=== PATIENT | male | born 1990 | race Caucasian/White ===

== ENCOUNTER 2022-05-10 14:40 | Outpatient (CLI) | payer OTHER, SELFPAY ==
--- NOTE | ~2022-05-10 | XR_ITS ---
EXAM: XR abdomen/kub 1V DATE: 05/10/2022 15:00 HISTORY: LEFT URETERAL CALCULUS . COMPARISON: None available. FINDINGS: Clear lung bases. Normal bowel gas pattern. No organomegaly. Irregular, 3 x 6 mm left pelv ic calcification may reflect a left ureteral or UVJ stone. Additional rounded calcifications in the p aruna presumed to be pelvic phleboliths. Regional bones and soft tissues normal for age. IMPRESSION: Possible left distal ureteral/UVJ stone. Reviewed, dictated and finalized at location [facility].
== END 2022-05-10 14:41 | disposition home or self-care (01) ==
PROVIDERS: Visit Provider Nurse Practitioner Adult Health
DX: N20.1 Calculus of ureter (principal)
CPT/HCPCS: 74018

== ENCOUNTER 2022-05-18 00:16 | Day surgery (SDC) | payer SELFPAY ==
[2022-05-13 10:57] VITALS: BMI 22.7
--- NOTE | 2022-05-13 11:04 | PC.NURSE ---
Report to the Outpatient Waiting Room, entrance under the green pavilion located off [facility], at time 1100 on date 05/18/22. OR Time: 1300. - You and your visitor will be asked a series of questions to screen for COVID 19 for your protection. - Only one visitor is allowed at this time. - The patient visitor is requested to leave or wait in car when not with patient. - A mask is required within the hospital. Patients may have clear liquids (water, carbonated beverages, clear teas, apple juice) until 3 hours prior to surgery with a maximum of 20 ounces. - No food from midnight until time of surgery Take the following medications with a SIP of water the morning of surgery: PAIN PILL (IF NEEDED) Medications to discontinue per physician: N/A Date to take last dose: N/A Please no make-up, nail tajik, hairspray, perfume, deodorant, or body powder the day of surgery. No jewelry (including any body piercings) or valuables the day of surgery, leave them at home. Please take a shower or bath the night before, or the morning of, surgery with an antibacterial soap. Wear comfortable, loose fitting clothing. - Jewelry must be removed prior to entering the operating room. Rings and piercings that are not removed may be cut off. - The hospital will not accept responsibility for valuables. - Please leave all valuables, including medications, at home the day of surgery. If you are going home after surgery, a licensed local city driver must drive you home. - NO public transportation without another adult. - We recommend that an adult stay with you for 24 hours following discharge. - We also recommend that you do not drive, make important decision, drink alcoholic beverages, or take any drugs that were not prescribed by your health care provider for at least 24 hours after your discharge time. Follow any additional instructions given to you from your surgeon. If you or anyone in your household have experienced Covid symptoms in the past week, please notify your surgeon or the nurse liaison at the phone number below for possible testing. Telephone instructions given to PT - SHERRI COULTER and asked if any additional questions and then verbalized understanding. Patient advised to call surgeon office or pre surgery nurse liaison [phone] if any additional questions.
--- NOTE | 2022-05-17 14:18 | WPDANESEPPF ---
Anes - Initial Pre Proc Eval Procedure: Operation Date: 05/18/22 13:00 Proposed Procedures p Cystoscopy, Left Ureteroscopy, Left Retrograde Pyelogram, Left Stone Extraction, Left Stent Placement, Possible Holmium Laser Lithotripsy - Walt Galvan MD Date/Time: 05/17/22 14:18 Surgeon: Walt Galvan MD Pre Op Diagnosis: left ureteral stone Patient Data Age: 31 Gender: M Height: 1.7 m Weight: 65.77 kg Allergies Allergy/AdvReac Type Severity Reaction Status Date / Time bacitracin Allergy Swelling Verified 05/13/22 10:56 [From Triple Antibiotic] neomycin Allergy Swelling Verified 05/13/22 10:56 [From Triple Antibiotic] polymyxin B Allergy Swelling Verified 05/13/22 10:56 [From Triple Antibiotic] Home Medications Medication Instructions Recorded Confirmed Type hydrocodone 5 mg-acetaminophen 325 1 tablet PO Q6H PRN Pain 05/13/22 05/13/22 History mg tablet tamsulosin 0.4 mg capsule 0.4 mg PO DAILY 05/13/22 05/13/22 History Patient hx anesthesia problems: none Family hx anesthesia problems: none Results Review: All pre-operative results and documents have been reviewed as part of the pre-operative evaluation. [facility]LY [facility] Past Medical History Medical History (Updated 05/17/22 @ 14:18 by Marcos Beatty MD) Ureterolithiasis Social History Social History Smoking status: Former smoker Tobacco type: cigarettes Additional smoking assessment comments: PREVIOUS SOMEDAY/SOCIAL SMOKER Alcohol intake: never Substance use: never Substance use type: does not use Living arrangements: with family Spiritual care concerns: No Anes - Eval Final PreProcedure Day of Procedure 05/17/22 14:18 Patient weight: overweight Heart: regular rate and rhythm Lungs: clear to auscultation and normal air movement Airway: Mallampati scale class II Neurological: alert and oriented Last oral intake: >/= 8 hours ASA classification: II Emergent: no Anesthetic plan: proceed Anesthesia type and monitoring: general LMA Results Review: All pre-operative results and documents have been reviewed as part of the pre-operative evaluation. Informed Consent: The patient's anesthetic plan and its attendant risks and benefits were discussed with the patient/family/POA. Questions were solicited and answers provided to the satisfaction of the patient/family/POA.
[2022-05-18] VITALS (8 sets, daily range): BP systolic 97–133; BP diastolic 54–91; PULSE 60–84; RESP 12–20; TEMP 36.4–36.8; O2SAT 99–100
--- NOTE | ~2022-05-18 | XR_ITS ---
EXAMINATION: XR stent kub - surgery DATE: 05/18/2022 14:00 CDT INDICATION: LT STENT PLACEMENT, RENAL STONE REMOVED . TECHNIQUE: 2 fluoroscopic images of the left abdomen and pelvis were obtained during left ureteral st ent placement performed by the surgeon. I was not present in the operating room. Fluoroscopy exposure time was 16.1 seconds. Cumulative dose was 0.20248 mGy2. COMPARISON: 05/10/2022. FINDINGS: Cystoscope in the bladder. Left proximal ureteral stent placement into the renal pelvis, stiffening w jama remains in position. Final image demonstrates the lower portion of the ureteral stent, in good po sition. IMPRESSION: Fluoroscopic documentation of left ureteral stent placement. Please refer to the operative note for c omplete procedural details . Reviewed, dictated and finalized at [facility]. IMPRESSION: Fluoroscopic documentation of left ureteral stent placement. Please refer to th e operative note for complete procedural details .
[2022-05-18] MEDS: LACTATED RINGERS 1,000 ML 30 ML IV CONT ×2 (11:00→15:09)
--- NOTE | 2022-05-18 12:20 | WPDHPUPDATE1 ---
History and Physical Update Update Date/Time: 05/18/22 12:20 History and Physical has been reviewed, including an updated exam of the patient. There are NO changes in the patient's condition. Risks, benefits, and alternatives have been discussed and questions answered. Patient agrees to proceed with procedure.
--- NOTE | 2022-05-18 12:31 | WPDHPUPDATE1 ---
History and Physical Update Update Date/Time: 05/18/22 12:31 History and Physical has been reviewed, including an updated exam of the patient. There are NO changes in the patient's condition. Risks, benefits, and alternatives have been discussed and questions answered. Patient agrees to proceed with procedure. Proceed with cystoscopy, left retrograde pyelogram, left ureteroscopy with stone extraction, possible laser, possible stent
[2022-05-18] MEDS: ceFAZolin 2 GM/D5W 50 ML 2 GM/50 ML BAG IVPB (13:53)
[2022-05-18] MEDS: LIDOCAINE HCL 2% GEL UROJET 10 ML PKG MUCOUS MEM (14:04)
[2022-05-18] MEDS: KETOROLAC 30 MG/ML VIAL (*BKC) IV PUSH (14:22)
--- NOTE | 2022-05-18 14:23 | P.OP_ITS ---
Procedure Note - Detailed Date of Procedure 05/18/22 Pre-op Diagnosis left ureteral stone Post-op Diagnosis Same (Recent passage of left ureteral calculus, left renal calculus) Procedure Performed Cystoscopy, left ureteroscopy, stone extraction, left ureteral stent placement 4 Azerbaijani contour Surgeon Walt Galvan MD Anesthesia General Description of Procedure Patient is taken the operative suite and correctly identified. Once anesthesia was obtained he was placed in dorsal lithotomy position and prepped and draped usual sterile fashion. Twenty-two Azerbaijani scope inserted into the bladder. There was no tumors or strictures noted. Left ureteral orifice was cannulated with a guidewire. The orifice was dilated with an 8/10 dilator. Rigid ureteral scope was then inserted into the orifice. There was no distal stone visualized. We then placed a 2nd wire in and placed a mini flexible ureteral scope. The entire ureter was inspected. There were no stones noted. We inspected the kidney and found small left renal calculi. Using a ZeroTip basket we retrieved this and sent for analysis. A 4.8 Azerbaijani contour stent was then placed with the proximal end coiled in the renal pelvis the distal in the bladder. Bladder was drained. 2% viscous lidocaine was inserted into the urethra and patient is taken recovery stable condition. He will follow up in a week's time for stent removal. Drains Yes Packing No Pathology Yes Complications No immediate complications Condition Stable Disposition PACU
[2022-05-18] MEDS: fentaNYL CITRATE INJ (*CRX) 100 MCG/2 ML VIAL 25 MCG IV PUSH (14:52)
[2022-05-18 15:01] LABS: Glucose Point of Care 91 mg/dl (65-105)
== END 2022-05-18 16:05 | disposition home or self-care (01) ==
PROVIDERS: Visit Provider Urology
PROC: (CPT 52352; principal; 2022-05-18 13:00)
DX: N20.1 Calculus of ureter (principal); Z87.891 Personal history of nicotine dependence; Z79.899 Other long term (current) drug therapy
CPT/HCPCS: 52352; 52332; 82365; 82948; 88300; A9270; C1769; C2617; J0690; J1100; J1885; J2250; J2405; J2704; J3010; J7120